=== PATIENT | female | born 1980 | race Two or more races ===

== ENCOUNTER 2023-02-01 11:05 | Emergency (ER) | payer MEDICAID ==
[~2023-02-01] VITALS: Ht 157.5 cm; Wt 82.9 kg
[2023-02-01 11:28] VITALS: BP 129/81; PULSE 80; RESP 18; TEMP 97.6; O2SAT 97
[2023-02-01] MEDS ORDERED: FLUORESCEIN SOD OPTH TEST STRIP ONE (12:43)
[2023-02-01] MEDS ORDERED: TETRACAINE HCL 0.5% OPTH(EYE) SOLN 4ML EACHEYE ONE (12:45)
[2023-02-01] MEDS ORDERED: FLUORESCEIN SOD OPTH TEST STRIP OP ONE (12:45)
[2023-02-01] MEDS ORDERED: TOB03OS OP (13:30)
== END 2023-02-01 13:45 | disposition home or self-care (01) ==
LOC: ER 11:05
DX: S05.02XA Injury of conjunctiva and corneal abrasion without foreign body, left eye, initial encounter (principal); H10.32 Unspecified acute conjunctivitis, left eye; Z98.890 Other specified postprocedural states; Z79.899 Other long term (current) drug therapy; W22.8XXA Striking against or struck by other objects, initial encounter; Y93.89 Activity, other specified; Y92.89 Other specified places as the place of occurrence of the external cause; Y99.8 Other external cause status

== ENCOUNTER 2025-04-22 20:36 | Emergency (ER) | payer MEDICAID, OTHER ==
[~2025-04-22] VITALS: Ht 172.7 cm; Wt 81.8 kg
[~2025-04-22 20:36] MED LIST: TOB03OS OP
--- NOTE | 2025-04-22 21:09 | ED.PDOC ---
HPI Comments 45 y/o F, presents to the ED for CC of chest pain. Patient states, she has been experiencing sudden onset chest pain following an argument with family. Patient reports, symptoms usually arise when under increased stress. Patient further relays, associated symptoms of a generalized headache, palpitations, and shortness of breath. Patient denies nausea, vomiting, or dizziness. Chief Complaint: Chest Pain Time Seen by MD: 21:00 Reviewed Notes: Nurses Notes, Medications, Allergies Allergies: Coded Allergies: NO KNOWN ALLERGIES (Unverified , 02/01/23) Home Meds Active Scripts Tobramycin Sulfate (Tobrex) [address], 2 DROP OP QID, #5 ML Prov:YARA WILKINSON 02/01/23 Information Source: Patient Mode of Arrival: EMS Severity: Moderate Timing: Hours Duration: Since onset Prehospital treatment: None Location: Substernal Radiation: Back Cardiac Risk Factors: None PE Risk Factors: None History of: None Associated Signs and Symptoms: SOB, Palpitations Past Medical History PAST MEDICAL HISTORY: Denies Surgical History: BIOSTATISTICS MANAGER History: No Pertinent BIOSTATISTICS MANAGER History Family History Family History: Reviewed,noncontributory to illness Social History Smoker: Non-Smoker Alcohol: Denies ETOH Use Drugs: Denies Drug Use Lives In: Home Constitutional: denies: chills, diaphoresis, fatigue, fever, malaise, sweats, weakness, others EENTM: denies: blurred vision, double vision, ear bleeding, ear discharge, ear drainage, ear pain, ear ringing, eye pain, eye redness, hearing loss, mouth pain, mouth swelling, nasal discharge, nose bleeding, nose congestion, nose pain, photophobia, tearing, throat pain, throat swelling, voice changes, others Respiratory: reports: shortness of breath; denies: cough, hemoptysis, orthopn ea, SOB at rest, SOB with excertion, stridor, wheezing, others Cardiovascular: reports: chest pain, palpitations; denies: dizzy spells, diaphoresis, Dyspnea on exertion, edema, irregular heart beat, left arm pain, lightheadedness, PND, syncope, others Gastrointestinal: denies: abdomen distended, abdominal pain, blood streaked bowels, constipated, diarrhea, dysphagia, difficulty swallowing, hematemesis, melena, nausea, poor appetite, poor fluid intake, rectal bleeding, rectal pain, vomiting, others Genitourinary: denies: abnormal vagina bleeding, burning, dyspareunia, dysuria, flank pain, frequency, hematuria, incontinence, pain, , vagina discha rge, urgency, others Neurological: reports: headache; denies: dizziness, fainting, left sided numbness, left sided weakness, numbness, paresthesia, pre-existing deficit, right sided numbness, right sided weakness, seizure, speech problems, tingling, tremors, weakness, others Musculoskeletal: denies: back pain, gout, joint pain, joint swelling, muscle pain, muscle stiffness, neck pain, others Integumetry: denies: bruises, change in color, change in hair/nails, dryness, laceration, lesions, lumps, rash, wounds, others Allergic/Immunocompromised: denies: Difficulty Healing, Frequent Infections, Hives, Itching, others Hematologic/Lymphatic: denies: anemia, blood clots, easy bleeding, easy bruising, swollen glands, others Endocrine: denies: excessive hunger, excessive sweating, excessive thirst, excessive urination, flushing, intolerance to cold, intolerance to heat, unexplained weight gain, unexplained weight loss, others Psychiatric: denies: anxiety, bipolar disorder, depression, hopeless, panic disorder, schizophrenia, sleepless, suicidal, others All Other Systems: Reviewed and Negative Physical Exam General Appearance: No Apparent Distress, Normal HEENT: Normal ENT Inspection, Pharynx Normal Neck: Full Range of Motion, Non-Tender, Normal, Normal Inspection Respiratory: Chest Non-Tender, Lungs Clear, No Accessory Muscle Use, No Respiratory Distress, Normal Breath Sounds Cardiovascular: No Edema, No Murmur, No Gallop, Normal Peripheral Pulses, Regular Rate/Rhythm Breast Exam: Deferred Gastrointestinal: No Organomegaly, Non Tender, No Pulsatile Mass, Normal Bowel Sounds, Soft Genitalia: Deferred Pelvic: Deferred Rectal: Deferred Extremities: No calf tenderness, Normal capillary refill, Normal inspection, Normal range of motion, Non-tender, No pedal edema Musculoskeletal : Location: Right Extremity Location: Chest Apperance: Tenderness: Mild (to palpation) Neurologic: Alert, commercial property administrator II-XII nml as Tested, No Motor Deficits, Normal Affect, Normal Mood, No Sensory Deficits Cerebellar Function: Normal Reflexes: Normal Skin: Dry, Normal Color, Warm Lymphatic: No Adenopathy Was a procedure done? Was a procedure done?: No CP Differential Dx Differential Diagnosis: Anxiety / Panic Attack Differential Diagnosis: Chest Wall Pain, Costochondritis X-Ray, Labs, Meds, VS Vital Signs Date Time Temp Pulse Resp B/P (MAP) Pulse Ox O2 Delivery O2 Flow Rate FiO2 04/22/25 21:48 98.4 84 20 111/75 (87) 100 98.4 04/22/25 20:42 98.3 90 18 128/73 98 98.3 04/22/25 20:41 76 Lab Test 04/22/25 21:37 04/22/25 20:48 Range/Units Troponin I High Sensitivity < 3 L < 3 L </=34 ng/L Current Medications Medications (Trade) Dose Ordered Sig/[place] Route Start Time Stop Time Status Last Admin Alprazolam (Xanax Tablet) 0.25 mg ONCE ONCE PO 04/22/25 21:15 04/22/25 21:16 DC 04/22/25 21:45 [place] [id number] Ph: [phone] DIAGNOSTIC IMAGING Diagnostic Imaging Report : [id number] Signed PATIENT: YOKO FOOTEACCT: [id number] UNIT: [id number] : 1980 LOC: ER ROOM / BED: / AGE / SEX: 45 / F ADM STATUS: REG ER SERVICE 00 ORDERING PHYSICIAN: KO BLANKENSHIP MD PROCEDURE(s): CXR1 - CHEST XRAY 1 VIEW REASON: cp ORDER NUMBER(s): [id number], ACCESSION NUMBER(s): [id number] CHEST RADIOGRAPH INDICATION: cp TECHNIQUE: Single frontal view of the chest was obtained COMPARISON: None FINDINGS: Lines and Tubes: None Lungs: No focal consolidation. Pleura: No effusion. No pneumothorax. Cardiomediastinal contours: Unremarkable Bones: No acute osseous abnormality. IMPRESSION: 1. No acute cardiopulmonary disease. ATED BY: FOSTER MEJÍA Jr., DO DICTATED DATE/TIME: 04/22/252127 SIGNED BY: FOSTER MEJÍA Jr., SIGNED DATE/TIME: 04/22/252127 CC: Time of 1ST Reevaluation: 21:30 Reevaluation 1ST: Unchanged Patient Education/Counseling: Diagnosis, Treatment Family Education/Counseling: No Family Present Comments This is a patient who has a history of anxiety with chest pain provoked by stress. She was in argument today with family when her symptoms started. EKGs unremarkable. Her troponin is negative. Chest x-ray does not show any pneumothorax, infiltrates, pleural effusion or masses. She is stable for discharge with noncardiac chest pain and anxiety Additional Information The following tests were ordered, and results were reviewed by me: TROPONIN X3, EKG X3, CXR Additional information was gathered from interviewing the following independent historian: EMS I reviewed and agreed with the following test results read by other provider: CXR I discussed treatments and results with medical personnel and: PATIENT Comprehensive systems review obtained and negative except for what is stated in the HPI. SEPSIS Sepsis Screen Date sepsis recognized/suspect: Apr 22, 2025 Time Sepsis recognized/suspect: 2042 Recent Procedure: No On Antibiotic Therapy: No Respiratory Rate >20: No Heart Rate >90: No Temp<36 C (96.8 F) or >38.3 C: No SBP <90 or MAP <65 mmHG: No New Acute Mental Status Change: No Is the patient on CPAP, BIPAP,: No Physician Orders Electrocardigram (04/22/25 20:46) Chest Xray 1 View (04/22/25 21:01) Vital Signs Date Time Temp Pulse Resp B/P (MAP) Pulse Ox O2 Delivery O2 Flow Rate FiO2 04/22/25 21:48 98.4 84 20 111/75 (87) 100 98.4 04/22/25 20:42 98.3 90 18 128/73 98 98.3 04/22/25 20:41 76 Medications Medications Dose Ordered Sig/[place] Route Start Time Stop Time Status Last Admin Dose Admin Alprazolam 0.25 mg ONCE ONCE PO 04/22/25 21:15 04/22/25 21:16 DC 04/22/25 21:45 Departure 1 Departure Time of Disposition: 22:56 Impression: Primary Impression: Non-cardiac chest pain Additional Impression: Anxiety Disposition: 01 HOME / SELF CARE / HOMELESS Condition: Good Discharged With: Self Critical Care Note Critical Care Time?: No Stability Stability form required: No Heart Score Heart Score: Heart Score Response (Comments) Value History N/A 0 EKG N/A 0 Age N/A 0 Risk Factors N/A 0 Troponin N/A 0 Total 0 I personally scribed for KO BLANKENSHIP MD ([facility]) on 04/22/25 at 21:09. Electronically submitted by Riya Bueno ([employer]). I personally scribed for KO BLANKENSHIP MD ([facility]) on 04/22/25 at 21:40. Electronically submitted by Riya Bueno ([employer] I personally scribed for KO BLANKENSHIP MD ([facility]) on 04/22/25 at 21:41. Electronically submitted by Riya Bueno ([employer]). KO BLANKENSHIP MD Apr 22, 2025 21:09
--- NOTE | 2025-04-22 21:31 | DVH ---
CHEST RADIOGRAPH INDICATION: cp TECHNIQUE: Single frontal view of the chest was obtained COMPARISON: None FINDINGS: Lines and Tubes: None Lungs: No focal consolidation. Pleura: No effusion. No pneumothorax. Cardiomediastinal contours: Unremarkable Bones: No acute osseous abnormality. IMPRESSION: 1. No acute cardiopulmonary disease.
[2025-04-22] MEDS: ALPRAZolam 0.25 MG TAB PO ONE (21:45)
[2025-04-22 21:48] VITALS: BP 111/75; PULSE 84; TEMP 98.4; O2SAT 100
[2025-04-22 23:00] VITALS: RESP 18
--- NOTE | 2025-04-23 06:52 | ECG ---
[facility] Test Date: 2025-04-22 Test Time: 20:41:13 Pat Name: YOKO FOOTE Department: [facility] ED Patient ID: [facility]-[id number] Room: Gender: F Pbx Inspector: LINCOLN : 1980 Requested By: KO BLANKENSHIP Order Number: [id number] Reading MD: Osman Oglesby Measurements Intervals [place] Rate: 76 P: 37 ND: 146 QRS: 21 QRSD: 79 T: 5 QT: 389 QTc: 438 Interpretive Statements Sinus rhythm Low voltage, precordial leads Baseline wander in lead(s) I Electronically Signed On 04-23-2025 15:29:02 PST by Osman Oglesby Please click the below link to view image of tracing.
== END 2025-04-22 23:07 | disposition home or self-care (01) ==
LOC: ER 20:36 → EDBD 20:36 → ER 23:07
DX: R07.89 Other chest pain (principal); F41.9 Anxiety disorder, unspecified; Z79.899 Other long term (current) drug therapy; Z98.890 Other specified postprocedural states
CPT/HCPCS: 36415; 71045; 84484; 93005